=== PATIENT | male | born 1990 | race Hispanic/Latino ===

== ENCOUNTER 2023-02-11 11:00 | Emergency (ER) | payer SELFPAY ==
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
[2023-02-11 11:46] LABS: SARS-CoV-2 Antigen Rapid Res Negative (Negative)
--- NOTE | 2023-02-11 12:26 | RAD REPORT ---
EXAM DESCRIPTION: [place] Single View02/11/2023 12:09 pm CLINICAL HISTORY: cough COMPARISON: none FINDINGS: The lungs appear clear of acute infiltrate. The heart is normal size IMPRESSION: No acute abnormalities displayed
--- NOTE | 2023-02-11 12:41 | ER ---
Nurse's Notes [facility] Name: Jameson Bajwa Age: 32 yrs Sex: Male : 1990 Arrival Date: 02/11/2023 Time: 11:00 Bed 19 Private MD: Diagnosis: Acute bronchitis, unspecified Presentation: 02/11 11:13 Chief complaint: Productive cough, sinus congestion, malaise, fever, and sore throat x hb 2 weeks. Spouse recently tested positive for strep and flu. TMAX 101. Coronavirus screen: Client presents with at least one sign or symptom that may indicate coronavirus-19. Standard/surgical mask placed on the client. Provider contacted for isolation considerations. Ebola Screen: No symptoms or risks identified at this time. Initial Sepsis Screen: Does the patient meet any 2 criteria? No. Patient's initial sepsis screen is negative. Does the patient have a suspected source of infection? No. Patient's initial sepsis screen is negative. Risk Assessment: Do you want to hurt yourself or someone else? Patient reports no desire to harm self or others. Onset of symptoms was January 28, 2023. 11:13 Method Of Arrival: Ambulatory hb 11:13 Acuity: EULA 3 hb Historical: - Allergies: 11:15 No Known Allergies; hb - Home Meds: 11:15 None [Active]; hb - PMHx: 11:15 Hypertension; hb - PSHx: 11:15 None; hb - Immunization history:: Adult Immunizations up to date. - Social history:: Smoking status: Reported history of juuling and/or vaping. Screenin:39 Abuse screen: Denies threats or abuse. Nutritional screening: No deficits noted. ll1 Tuberculosis screening: No symptoms or risk factors identified. 12:50 [facility] ED Fall Risk Assessment (Adult) Score/Fall Risk Level 0 - 2 = Low Risk ll1 Oriented to surroundings, Maintained a safe environment, Educated pt \T\ family on fall prevention, incl call for assistance when getting out of bed, Hourly rounding (assess needs \T\ fall precautionary measures) done. Assessment: 11:20 General: Appears uncomfortable, ill, Behavior is calm, cooperative, appropriate for ll1 age. Pain: Complains of pain in throat Quality of pain is described as aching. Respiratory: Reports cough that is Airway is patent Trachea midline Respiratory effort is even, unlabored, Breath sounds are clear bilaterally. EENT: Reports pain when swallowing. 11:38 Reassessment: No changes from previously documented assessment. Patient and/or family ll1 updated on plan of care and expected duration. Pain level reassessed. Patient is alert, oriented x 3, equal unlabored respirations, skin warm/dry/pink. 12:49 Reassessment: No changes from previously documented assessment. Patient and/or family ll1 updated on plan of care and expected duration. Pain level reassessed. Patient is alert, oriented x 3, equal unlabored respirations, skin warm/dry/pink. Vital Signs: 11:13 BP 149 / 79; Pulse 96; Resp 18; Temp 99(O); Pulse Ox 99% on R/A; Weight 113.4 kg; hb Height 6 ft. 1 in. ; Pain 110; 12:48 BP 134 / 81; Pulse 87; Resp 17; Pulse Ox 95% on R/A; ll1 11:13 Body Mass Index 32.98 (113.40 kg, 185.42 cm) hb 11:13 Pain Scale: Adult hb ED Course: 11:03 Patient arrived in ED. mr 11:03 Haelizabeth Davina, [facility] 11:03 Donnell Lanier MD is Attending Physician. jh7 11:15 Triage completed. hb 11:15 Laura Norton, RN is Primary Nurse. ll1 11:15 Arm band placed on. hb 12:11 XRAY Chest (1 view) In Process Unspecified. EDMS 12:50 Patient has correct armband on for positive identification. Bed in low position. Call ll1 light in reach. Side rails up X 1. Client placed on continuous cardiac and pulse oximetry monitoring. NIBP monitoring applied. 12:50 No provider procedures requiring assistance completed. Patient did not have IV access ll1 during this emergency room visit. Administered Medications: No medications were administered Medication: 12:50 VIS not applicable for this client. ll1 Outcome: 12:40 Discharge ordered by . jh7 12:50 Discharged to home ambulatory. ll1 12:50 Condition: stable 12:50 Discharge instructions given to patient, family, Instructed on discharge instructions, follow up and referral plans. medication usage, Demonstrated understanding of instructions, follow-up care, medications, Prescriptions given X 3. 12:50 Patient left the ED. 1 Signatures: Dispatcher [employer] AKHIL Klever Lucía Leyda Mckeon RN RN hb Lewis, Lynsay, RN RN 1 Davina Bob FNP FNP jh7
--- NOTE | 2023-02-11 12:41 | EDPHYS ---
Physician Documentation [facility] Name: Jameson Bajwa Age: 32 yrs Sex: Male : 1990 Arrival Date: 02/11/2023 Time: 11:00 Bed 19 Private MD: ED Physician Donnell Lanier HPI: 02/11 11:15 This 32 yrs old Male presents to ER via Ambulatory with complaints of Cough, jh7 Congestion, Fever. 11:15 The patient or guardian reports cough, described as moderate. Onset: The jh7 symptoms/episode began/occurred 2 week(s) ago. 32-year-old male presents with cough, congestion, sore throat, and wheezing for the past 2 weeks. The patient states he initially had a fever but now is mainly suffering from his cough. Reports recent exposure to flu from .. Historical: - Allergies: 11:15 No Known Allergies; hb - Home Meds: 11:15 None [Active]; hb - PMHx: 11:15 Hypertension; hb - PSHx: 11:15 None; hb - Immunization history:: Adult Immunizations up to date. - Social history:: Smoking status: Reported history of juuling and/or vaping. ROS: 11:15 Constitutional: Negative for fever, chills, and weight loss, Eyes: Negative for injury, jh7 pain, redness, and discharge, Neck: Negative for injury, pain, and swelling, Cardiovascular: Negative for chest pain, palpitations, and edema, Abdomen/GI: Negative for abdominal pain, nausea, vomiting, diarrhea, and constipation, Back: Negative for injury and pain, MS/Extremity: Negative for injury and deformity, Skin: Negative for injury, rash, and discoloration, Neuro: Negative for headache, weakness, numbness, tingling, and seizure. 11:15 ENT: Positive for sinus congestion, sore throat. 11:15 Respiratory: Positive for cough, Negative for shortness of breath. 11:15 All other systems are negative. Exam: 11:15 Constitutional: This is a well developed, well nourished patient who is awake, alert, jh7 and in no acute distress. Head/Face: Normocephalic, atraumatic. Eyes: Pupils equal round and reactive to light, extra-ocular motions intact. Lids and lashes normal. Conjunctiva and sclera are non-icteric and not injected. Cornea within normal limits. Periorbital areas with no swelling, redness, or edema. Neck: Trachea midline, no thyromegaly or masses palpated, and no cervical lymphadenopathy. Supple, full range of motion without nuchal rigidity, or vertebral point tenderness. No Meningismus. Cardiovascular: Regular rate and rhythm with a normal S1 and S2. No gallops, murmurs, or rubs. Normal PMI, no JVD. No pulse deficits. Abdomen/GI: Soft, non-tender, with normal bowel sounds. No distension or tympany. No guarding or rebound. No evidence of tenderness throughout. Back: No spinal tenderness. No costovertebral tenderness. Full range of motion. Skin: Warm, dry with normal turgor. Normal color with no rashes, no lesions, and no evidence of cellulitis. MS/ Extremity: Pulses equal, no cyanosis. Neurovascular intact. Full, normal range of motion. Neuro: Awake and alert, GCS 15, oriented to person, place, time, and situation. Motor strength 5/5 in all extremities. Sensory grossly intact. Normal gait. 11:15 ENT: TM's: are normal, Nose: is normal, Posterior pharynx: erythema, is not appreciated, exudate, is not appreciated, pooling of secretions, that are mild. 11:15 Respiratory: the patient does not display signs of respiratory distress, Respirations: normal, Breath sounds: are clear throughout, hacking, persistent cough. Vital Signs: 11:13 BP 149 / 79; Pulse 96; Resp 18; Temp 99(O); Pulse Ox 99% on R/A; Weight 113.4 kg; hb Height 6 ft. 1 in. ; Pain 1/10; 12:48 BP 134 / 81; Pulse 87; Resp 17; Pulse Ox 95% on R/A; ll1 11:13 Body Mass Index 32.98 (113.40 kg, 185.42 cm) hb 11:13 Pain Scale: Adult hb MDM: 11:03 Patient medically screened. [facility] 12:35 Differential Diagnosis: Bronchitis Influenza Upper Respiratory Infection Sinusitis 7 Pharyngitis Viral Syndrome Pneumonia. Data reviewed: vital signs, nurses notes, radiologic studies, plain films. Independent interpretation of the following test(s) in the Emergency Department X-Ray: My interpretation is no acute findings. Historians other than the Patient: Spouse/Significant Other: . Care significantly affected by the following chronic conditions: Hypertension. Counseling: I had a detailed discussion with the patient and/or guardian regarding: the historical points, exam findings, and any diagnostic results supporting the discharge/admit diagnosis, to return to the emergency department if symptoms worsen or persist or if there are any questions or concerns that arise at home. 02/11 11:20 Order name: Strep [facility] 02/11 11:20 Order name: Flu; Complete Time: 12:29 [facility] 02/11 11:20 Order name: SARS RAPID; Complete Time: 12:29 [facility] 02/11 11:56 Order name: Throat Culture [facility]MI 02/11 11:20 Order name: XRAY Chest (1 view); Complete Time: 12:29 [facility] Administered Medications: No medications were administered Disposition Summary: 02/11/23 12:40 Discharge Ordered Location: Home [facility] Problem: new [facility] Symptoms: are unchanged [facility] Condition: Stable [facility] Diagnosis - Acute bronchitis, unspecified [facility] Followup: [facility] - With: Private Physician - When: 2 - 3 days - Reason: Recheck today's complaints Discharge Instructions: - Discharge Summary Sheet [facility] - Acute Bronchitis, Adult [facility] Forms: - Medication Reconciliation Form [facility] - Thank You Letter [facility] - Antibiotic Education [facility] Prescriptions: - ProAir RespiClick 90 mcg/actuation Inhalation Aerosol Powder, Breath Activated - administer 2 inhalation by INHALATION route every 4 hours As needed; 1 Each; [facility] Refills: 0, Product Selection Permitted - Tessalon Perles 100 mg Oral Capsule - take 1 capsule by ORAL route every 8 hours As needed; 15 capsule; Refills: 0, [facility] Product Selection Permitted - Medrol (Mckay) 4 mg Oral Tablets, Dose Pack - take 1 tablet by ORAL route as directed - follow package instructions; 1 [facility] packet; Refills: 0, Product Selection Permitted Signatures: Dispatcher [employer] Leyda Anderson RN RN Davina Caro FNP COMPUTATIONAL SCIENTIST [facility] Corrections: (The following items were deleted from the chart) 11:47 11:15 This 32 yrs old Male presents to ER via Ambulatory with complaints of 7 Cough, Congestion, Fever. [facility]
[2023-02-11 12:55] VITALS: TEMP 99
[2023-02-11 12:57] VITALS: BP 134/81; O2SAT 95
== END 2023-02-11 12:50 | disposition home or self-care (01) ==
LOC: ER 11:00
DX: J20.9 Acute bronchitis, unspecified (principal)
CPT/HCPCS: 36415; 71045; 87070; 87081; 87804; 87811